=== PATIENT | male | born 1980 | race African-American/Black ===

== ENCOUNTER 2023-05-13 23:57 | Emergency (ER) | payer OTHER ==
[2023-05-14 00:12] VITALS: BP 117/78; PULSE 86; RESP 18; TEMP 98.7; BMI 26.6
== END 2023-05-14 00:15 | disposition home or self-care (01) ==
LOC: FER 23:57
DX: R05.9 Cough, unspecified (principal); R09.81 Nasal congestion; R50.9 Fever, unspecified; J06.9 Acute upper respiratory infection, unspecified; Z20.822 Contact with and (suspected) exposure to COVID-19
CPT/HCPCS: 0241U-QW; 99283-25